=== PATIENT | male | born 1980 | race Two or more races ===

== ENCOUNTER 2024-12-07 12:50 | Emergency (ER) | payer MEDICAID, SELFPAY ==
[2024-12-07 13:07] VITALS: BP 133/89; PULSE 81; RESP 18; TEMP 36.6; O2SAT 97; BMI 25.5
--- NOTE | 2024-12-07 13:13 | XR_ITS ---
Examination: CT abdomen and pelvis without contrast. Coronal 3-D reconstructions. Sagittal 2-D reconstructions. Date and time of exam:December 07, 2024 1343 hours Comparison May 07, 2016 INDICATIONS: Burning sensation with urination 6 days CTDI: vol (mGy): 9.03 DLP: (mGycm): 535 Technique: Axial images of the abdomen have been obtained, 3 mm slice thickness Intravenous contrast material has not been administered. Low dose protocols were performed. One or more of the following dose reduction techniques were used; automated exposure control, adjustment of the mA and/or KV according to patient size, use of iterative reconstruction technique. Findings: No focal liver or splenic lesions No gallstones No pancreatic or adrenal mass No renal or ureteral calculi, no hydronephrosis Aorta normal size Normal appendix No bowel obstruction Contracted urinary bladder, urinary bladder wall thickening up to 10 mm No prostatomegaly IMPRESSION: Cystitis pattern
[2024-12-07] MEDS: KETOROLAC INJ 30 MG/ML VIAL IM (13:31)
[2024-12-07 13:47] LABS: Basophils % (Auto) 0 % (0-2.5); Eosinophils # (Auto) 0.4 Thou/mm3 (0.0-0.5); Eosinophils % (Auto) 5 % (0-10); Hematocrit 41.8 % (41.0-53.0); Hemoglobin 14.4 g/dL (13.5-16.0); Immature Granulocytes % (Auto) 0 % (0-0); Immature Granulocytes Auto 0.03 Thou/mm3 (0.00-0.00); Lymphocytes # (Auto) 2.3 Thou/mm3 (1.0-4.8); Lymphocytes % (Auto) 27 % (10-50); Mean Corpuscular HGB Conc 34.4 g/dl (31.0-37.0); Mean Corpuscular Hemoglobin 29.5 pg (25.0-35.0); Mean Corpuscular Volume 86 fL (80-100); Monocytes # (Auto) 0.6 Thou/mm3 (0.0-0.8); Monocytes % (Auto) 7 % (0-12); Neutrophils # (Auto) 5.1 Thou/mm3 (1.8-7.7); Neutrophils % (Auto) 60 % (37-80); Nucleated Red Blood Cell % 0 /100 WBC (0); Platelet Count 205 Thou/mm3 (140-440); RDW Standard Deviation 38.2 fL (35.1-43.9); Red Blood Count 4.88 Miln/mm3 (4.50-5.90); White Blood Count 8.5 Thou/mm3 (3.8-10.6)
[2024-12-07 13:57] LABS: Collection Type, Urine Clean Catch
[2024-12-07 14:10] LABS: Alanine Aminotransferase 35 U/L (10-49); Albumin, Serum 4.7 gm/dL (3.5-5.0); Albumin/Globulin Ratio 1.9 (1.2-2.2); Alkaline Phosphatase 86 U/L (46-116); Anion Gap 9 (7-16); Aspartate Amino Transferase 23 U/L (0-34); BUN/Creatinine Ratio 11 Ratio (12-20); Bilirubin,Total 0.5 mg/dL (0.3-1.2); Blood Urea Nitrogen 12 mg/dL (9-23); Calcium 9.6 mg/dL (8.3-10.6); Calcium (Corrected) 9.6 mg/dL (8.5-10.1); Carbon Dioxide 27.5 mMol/L (20.0-31.0); Chloride 104 mMol/L (98-107); Creatinine (Component) 1.1 mg/dL (0.6-1.3); Estimated Creatinine Clearance 81.2 mL/min (>60); Globulin 2.5 gm/dL (2.3-3.5); Glucose 114 mg/dL (74-106); Lipase 52 U/L (12-53); Osmolality,Calculated 280 (275-295); Potassium 3.8 mMol/L (3.4-5.1); Sodium 140 mMol/L (136-145); Total Protein 7.2 gm/dL (5.7-8.2); eGFR > 60 See Note
[2024-12-07 14:20] LABS: Bilirubin,Urine Negative (Negative); Blood,Urine Negative (Negative); Clarity,Urine Clear (Clear/Hazy); Color,Urine Lt-Yellow (Lt Yel-Yel); Culture Indicated,Urine Not Indicated; Glucose, Urine Negative (Negative); Ketones,Urine Negative (Negative); Leukocyte Esterase,Urine Negative (Negative); Nitrite,Urine Negative (Negative); PH,Urine 5.5 (5.0-7.0); Protein,Urine Negative (Neg - Trace); RBC,Urine 3 /hpf (0-3); Specific Gravity,Urine 1.022 (1.001-1.035); Squamous Epithelial Cell,Urine < 1 /hpf (0-5); Urobilinogen,Urine Negative mg/dL (0.0-1.0); WBC,Urine 1 /hpf (0-5)
[2024-12-07 16:07] VITALS: BP 122/62; PULSE 87; RESP 18; TEMP 36.7; O2SAT 99
--- NOTE | 2024-12-07 17:55 | EDNOTE_ITS ---
ED General RME/HPI General Chief complaint: General Adult/Misc Complain Stated complaint: PAIN & BURNING IN PRIVATE PARTS X 6 DAYS Time Seen by Provider: 12/07/24 12:59 Arrival date/time: 12/07/24 12:50 44-year-old male presents to the emergency department today for complaint of burning and pain to the scrotum and penis as well as dysuria patient ports he did see his primary care doctor they put him on Pyridium and doxycycline but pain persists. Patient reports no chance of STD Limitations: no limitations Related Data Home Medications ?Medication ?Instructions ?Recorded ?Confirmed neomycin-bacitracn Zn-polymyx 3.5 1 applic topical TID 02/05/22 02/05/22 mg-400 unit-5,000 unit/gram top oint (Triple Antibiotic) Previous Rx's ?Medication ?Instructions ?Recorded ibuprofen 800 mg tablet 800 mg PO TID #30 tabs 12/18 ibuprofen 600 mg tablet 600 mg PO Q6H PRN pain #20 t abs 01/03/18 miconazole nitrate 2 % topical 1 applic topical BID #1 ,200 grams 02/05/22 ointment nystatin-triamcinolone 100,000 1 applic topical QDAY # 15 grams 02/05/22 unit/g-0.1 % topical cream cephalexin 500 mg capsule 500 mg PO BID 7 days #14 cap s 12/07/24 ibuprofen 800 mg tablet 800 mg PO TID PRN pain #30 t abs 12/07/24 Allergies Allergy/AdvReac Type Severity Reaction Status Date / Time shrimp Allergy Severe ITCHING TO Verified 12/07/24 12:57 EARS,EYES, CHEST HURTS acetaminophen (From Vicodin) Allergy Anaphylaxis Verified 12/07/24 12:57 hydrocodone (From Vicodin) Allergy Anaphylaxis Verified 12/07/24 12:57 Review of Systems Review of Systems Systems Reviewed: All systems reviewed, normal except as documented Constitutional Constitutional: Reports system reviewed and no additional complaints, except as documented, Denies fever(s) and Denies headache(s) Eyes Eyes: Reports system reviewed and no additional complaints, except as documented and Denies blurry vision ENT Ears, Nose, Mouth, and Throat: Reports system reviewed and no additional complaints, except as documented, Denies headache(s), Denies nasal congestion and Denies nasal discharge Cardiovascular Cardiovascular: Reports system reviewed and no additional complaints, except as documented, Denies chest pain and Denies dyspnea Respiratory Respiratory: Reports system reviewed and no additional complaints, except as documented, Denies chest congestion, Denies cough and Denies dyspnea Gastrointestinal Gastrointestinal: Reports system reviewed and no additional complaints, except as documented and Denies abdominal pain Genitourinary Genitourinary: Reports system reviewed and no additional complaints, except as documented, Denies difficulty urinating, Reports dysuria, Denies penile discharge, Denies scrotal swelling and Reports other (Burning sensation to the scrotum and penis ongoing intermittently for the l) Integumentary/Breasts Skin/Breast: Reports system reviewed and no additional complaints, except as documented and Denies rash Neurologic Neurologic: Reports system reviewed and no additional complaints, except as documented, Reports as per HPI and Denies headache(s) Past Medical History Past Medical History NEUROLOGIC: Positive Neurological Disorders (fluid in brain, cyst removed) CARDIAC: Positive Hypercholesterolemia; Negative Cardiac Disorders or Congestive Heart Failure RESPIRATORY: Positive Bronchitis; Negative Chronic Obstructive Pulmonary Disease (COPD) GASTROINTESTINAL: Negative Gastrointestinal Disorders GENITOURINARY: Negative Genitourinary Disorders or Renal Disease MUSCULOSKELETAL: Negative Musculoskeletal Disorders ENDOCRINE: Negative Endocrine Disorders, Diabetes Mellitus Type 1 or Diabetes Mellitus Type 2 PSYCHO/SOCIAL: Positive Depression and Anxiety Surgical History SURGICAL: Positive Neurologic Surgery (surgery 17-18, fluid drain, cyst removed); Negative Cardiac Surgery, Endocrine Surgery, Abdominal Surgery, Nephrectomy or Joint Replacement Social History SMOKING STATUS: Never smoker ED Exam General Limitations: Present no limitations General appearance: Present alert and in no apparent distress Head Head exam: Present atraumatic, normocephalic and normal inspection Eye Eye exam: Present normal appearance, PERRL and EOMI; Absent conjunctival injection ENT ENT exam: Present normal exam, normal oropharynx and mucous membranes moist Neck Neck exam: Present normal inspection, full ROM and trachea midline Chest Chest inspection: Present normal inspection and symmetric chest wall rise Respiratory Respiratory exam: Present normal lung sounds bilaterally; Absent respiratory distress Cardiovascular Cardiovascular exam: Present regular rate, normal rhythm and normal heart sounds Abdominal Exam Abdominal exam: Present soft and normal bowel sounds; Absent distention, tenderness, guarding, rebound or rigidity exam: Present normal inspection and normal testicular lie; Absent testicular tenderness, urethral discharge, scrotal swelling or circumcised Extremities Exam Extremities exam: Present normal inspection and full ROM Back Exam Back exam: Present normal inspection and full ROM Neurological Exam Neurological exam: Present alert, oriented X3 and CN II-XII intact Psychiatric Psychiatric exam: Present normal affect and normal mood Skin Skin exam: Present warm, dry, intact and normal color Course Quality Measures none Orders Category Date Time Status CT abdomen pelvis wo con Stat Exams 12/07/24 13:13 Completed CBC Stat Lab 12/07/24 13:30 Completed Chlamydia/GC/TV - PCR Stat Lab 12/07/24 13:30 Received Comprehensive Metabolic Panel Stat Lab 12/07/24 13:30 Completed Lipase Stat Lab 12/07/24 13:30 Completed UA, C/S IF [Urinalysis, C/S if Indicated] Stat Lab 12/07/24 13:30 Completed Ketorolac Inj [Toradol Inj] Med 12/07/24 13:18 Discontinued 30 mg IM X1 ONE Vital Signs Vital signs: Vital Signs Temperature 98 F 12/07/24 13:07 Pulse Rate 81 12/07/24 13:07 Respiratory Rate 18 12/07/24 13:07 Blood Pressure 133/89 H 12/07/24 13:07 Pulse Oximetry (%) 97 12/07/24 13:07 Oxygen Delivery Method Room Air 12/07/24 13:07 O2 saturation 97% room air within normal limits Discharge Plan Plan Patient Disposition: HOME (Self Care) Discharge Disposition comment: Stable Prescriptions/Referrals Prescriptions/Med Rec: New cephalexin 500 mg capsule 500 mg PO BID 7 Days Qty: 14 0RF ibuprofen 800 mg tablet 800 mg PO TID PRN (Reason: pain) Qty: 30 0RF No Action miconazole nitrate 2 % ointment 1 applic topical BID Qty: 1200 0RF nystatin-triamcinolone 100,000-0.1 unit/g-% cream 1 applic topical QDAY Qty: 15 1RF ibuprofen 800 mg tablet 800 mg PO TID Qty: 30 0RF ibuprofen 600 mg tablet 600 mg PO Q6H PRN (Reason: pain) Qty: 20 0RF Referrals: No Primary/Family,Physician [Primary Care Provider] - 12/09/24 Problem List Clinical Impression: Cystitis, Male pelvic pain Patient/Caregiver Discharge Instructions Education Materials: Measuring Your Pain Additional Instructions: Please follow up with your primary care doctor in the next 24-48hrs for any worsening symptoms return here immediately Print Language: [place] Citizen Stand Alone Forms: Saskia Award Info., Patient Portal Info Letter PA/[facility] [facility] Supervising Physician CHEN Supervising Physician: Dr. kaur [facility] Narrative MDM hospital course: 44-year-old male presents to the emergency department today for complaint of burning and pain to the scrotum and penis as well as dysuria patient ports he did see his primary care doctor they put him on Pyridium and doxycycline but pain persists. Patient reports no chance of STD Lab work and imaging obtained no acute emergent findings noted patient found to have cystitis Patient be treated course of antibiotics and pain medication Patient discharged home in no distress to follow-up with primary care doctor in the next 24 to 48 hours and for any worsening symptoms to return to the ER immediately Clinical Information Provided by none Medical Records Reviewed None Meds/Rx Considered, not Ordered Describe details: Given Labs/Rad/Tests considered, not Ordered None Describe details: Obtain Chronic Illness/Social Conditions which may negatively complicate care or outcome(s)-explain: None or not applicable EKG EKG not done Lab Interpretation Labs: see narrative above Imaging Imaging interpretation: see narrative above Medication Administration(s) Medication Administration History Discontinued Medications Ketorolac Tromethamine (Ketorolac Inj 30 Mg/Ml Vial) 30 mg IM X1 ONE Stop: 12/07/24 13:19 Last Admin: 12/07/24 13:31 Dose: 30 mg Documented By: KF Given Diagnosis Differential diagnosis: Dysuria, STD, cystitis, pain Most likely dx, and/or detailed dx discussion: Cystitis Dispositon Disposition: Discharge Home
== END 2024-12-07 16:08 | disposition home or self-care (01) ==
PROVIDERS: Nurse Practitioner Primary Care; Emergency Provider Family Medicine
DX: N30.90 Cystitis, unspecified without hematuria (principal); N50.82 Scrotal pain
CPT/HCPCS: 36415; 74176; 80053; 81001; 83690; 85025; 87491; 87591; 87661; 96372; 99284; J1885